=== PATIENT | male | born 1945 ===

== ENCOUNTER 2020-10-18 13:01 | Outpatient (CLI) | payer OTHER | END 2020-10-18 15:29 | disposition home or self-care (01) | LOC: OFIC 805 13:01 | PROVIDERS: ATTEND Otolaryngology Otology & Neurotology | DX: H65.21 Chronic serous otitis media, right ear (principal); H93.8X1 Other specified disorders of right ear; H65.91 Unspecified nonsuppurative otitis media, right ear; H60.391 Other infective otitis externa, right ear ==

== ENCOUNTER 2020-11-01 13:06 | Outpatient (CLI) | payer OTHER | END 2020-11-01 13:45 | disposition home or self-care (01) | LOC: OFIC 805 13:06 | PROVIDERS: ATTEND Otolaryngology Otology & Neurotology | DX: H65.21 Chronic serous otitis media, right ear (principal); H93.8X1 Other specified disorders of right ear; H65.91 Unspecified nonsuppurative otitis media, right ear; H60.391 Other infective otitis externa, right ear ==